=== PATIENT | male | born 1940 | race Caucasian/White ===

== ENCOUNTER 2017-10-18 16:35 | Emergency (ER) | payer MEDICARE, OTHER ==
[~2017-10-18] VITALS: Ht 172.7 cm; Wt 68.0 kg
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
[2017-10-18] MEDS ORDERED: Tetanus/Diptheria/Pertussis Vaccine 0.5ml Syr IM ONE (17:00)
[2017-10-18] MEDS ORDERED: Neosporin Oint Ud Pkt TOP ONE (17:00)
[2017-10-18] MEDS ORDERED: oxyCODONE HCL/Acetaminophen 5/325mg PO ONE (17:00)
[2017-10-18 19:00] VITALS: BP 176/62
[2017-10-18] MEDS ORDERED: IBUPROFEN600 MG ORAL (19:32)
[2017-10-18] MEDS ORDERED: TRAMADOL HCL50 MG ORAL (19:32)
[2017-10-19 05:03] VITALS: BP 131/66
[2017-10-19 11:00] VITALS: BP 130/68
--- NOTE | 2017-10-19 12:06 | Diagnostic Imaging Report ---
Indication: Pain, trauma Technique: 3 views left foot Comparison: none Findings: There is a comminuted fracture of the base and proximal shaft of the fifth metatarsal. There is a transverse and parallel fracture involving most of the shaft of the fourth metatarsal. No other acute fractures. No dislocations. The joint spaces are preserved. Impression: Positive for fourth and fifth metatarsal fractures This agrees with the preliminary interpretation provided by the emergency room physician
[2017-10-19 12:47] VITALS: BP 128/64
[2017-10-19 12:48] VITALS: BP 130/68
--- NOTE | 2017-10-19 14:14 | Diagnostic Imaging Report ---
Indication: Pain, trauma Technique: One view of the chest Comparison: None Findings: Suboptimal inspiration, resultant crowding of the bronchovascular markings. There is mild central bronchial wall thickening. Lungs and pleural spaces otherwise clear. The heart is borderline enlarged. Impression: No acute process. Findings as noted This agrees with the preliminary interpretation provided by the emergency room physician
--- NOTE | 2017-10-19 16:07 | Cardiology Report ---
APPROVED REPORT EKG Measurement Heart [id number] Atrial fibrillation Cannot rule out Anterior infarct, age undetermined Abnormal ECG
--- NOTE | 2017-10-20 13:03 | Diagnostic Imaging Report ---
APPROVED REPORT CPT Code: 74590 Symptoms Comments: Trauma to left foot. LEFT LEG: Common femoral artery waveform analysis is within normal limits at rest. Color duplex sonography reveals patency of the superficial femoral, popliteal and tibial arteries. There is no evidence of stenosis or occlusion within these segments. Doppler tibial artery waveform analysis is compatible within normal limits.
== END 2017-10-19 13:01 | disposition home or self-care (01) ==
LOC: EDBD 16:35 → EMR 18:20
DX: S92.342A Displaced fracture of fourth metatarsal bone, left foot, initial encounter for closed fracture (principal); S92.352A Displaced fracture of fifth metatarsal bone, left foot, initial encounter for closed fracture; S97.82XA Crushing injury of left foot, initial encounter; V03.99XA Pedestrian with other conveyance injured in collision with car, pick-up truck or van, unspecified whether traffic or nontraffic accident, initial encounter; Y92.414 Local residential or business street as the place of occurrence of the external cause; Z23 Encounter for immunization; I10 Essential (primary) hypertension; I48.91 Unspecified atrial fibrillation; I50.9 Heart failure, unspecified
CPT/HCPCS: 71045; 90471; 90715; 93005; 93926; 99284